=== PATIENT | female | born 2000 | race Caucasian/White ===

== ENCOUNTER → 2020-02-27 | Outpatient (CLI) | payer OTHER ==
[2020-02-28 15:45] LABS: HEPATITIS B SURFACE AB QUAL Reactive (.); HEPATITS B SURFACE ANTIGEN Negative (Negative); VARICELLA ZOSTER IGG AB 2696 index (Immune >16)
[2020-03-01 07:24] LABS: MUMPS IGG AB 11.8 AU/mL (Immune >10)
== END ==
LOC: OD 11:20
PROVIDERS: ATTEND Family Medicine
DX: Z11.1 Encounter for screening for respiratory tuberculosis (principal); Z01.84 Encounter for antibody response examination
CPT/HCPCS: 36415; 86480; 86706; 86735; 86762; 86765; 86787; 87340